=== PATIENT | female | born 1955 | race Caucasian/White ===

== ENCOUNTER 2018-03-17 12:31 | Emergency (ER) | payer OTHER ==
[~2018-03-17] VITALS: Ht 165.1 cm; Wt 83.9 kg
--- OUTSIDE RECORDS SUMMARY | 2018-03-17 12:35 | XMS REPORT ---
Author Author Dali Sena [facility] eClinicalWorks Address Unknown Phone Unavailable Care Team Providers Care Financial Dealers Name Role Phone Dali Sena CP Unavailable Allergies No Known Allergies Problems Problem Type Condition Code Onset Dates Condition Status Problem Diverticulosis of intestine without bleeding, unspecified intestinal tract location K57.90 Active Problem Hyperlipidemia, unspecified hyperlipidemia type E78.5 Active Problem Hx of breast cancer Z85.3 Active Problem Recurrent inguinal hernia without obstruction or gangrene, unspecified laterality K40.91 Active Assessment Hyperlipidemia, unspecified hyperlipidemia type E78.5 Active Problem Intractable migraine without status migrainosus, unspecified migraine type G43.919 Active Problem Osteoporosis, unspecified osteoporosis type, unspecified pathological fracture presence M81.0 Active Medications Medication Code System Code Instructions Start Date End Date Status Dosage Vitamin D (Ergocalciferol) [facility] 95148857325 57482 UNIT Orally once per week Active 1 capsule Atorvastatin Calcium [facility] 33270309730 40 mg Orally Once a day August 31, 2017 Active 1 tablet Atorvastatin Calcium [facility] 22256008794 20 MG Orally Once a day Inactive 1 tablet Results No Known Results Summary Purpose eClinicalWorks Submission
--- OUTSIDE RECORDS SUMMARY | 2018-03-17 12:35 | XMS REPORT | Summary of Care ---
Author Author TONNY Ventura, [facility] [place] Unknown Address Unknown Phone Unavailable Care Team Providers Care Bridge Crane Operator Name Role Phone DALE LANCASTER M.D.H Unavailable Unavailable Functional Status Name Dates Details Functional status health issues are not documented Status: Name Dates Details Cognitive status health issues are not documented Status: Problems Name Dates Details Aftercare following surgery (V58.89, Z48.89) Status: Active Burping (787.3, R14.2) Status: Active Medications Name Dates Details Atorvastatin Calcium 20 MG Oral Tablet Active Flonase SUSP * Refills: 0 Active Restasis 0.05 % Ophthalmic Emulsion * Refills: 0 Active Fish Oil CAPS * Refills: 0 Active Probiotic CAPS * Refills: 0 Active Lipitor 10 MG Oral Tablet * Refills: 0 Active Allergies and Adverse Reactions Name Dates Details No Known Drug Allergies (Allergy) Status: Active Past Medical History Name Dates Details History of Dysphagia (787.20, R13.10) Status: Resolved History of heartburn (V12.79, Z87.898) Status: Resolved History of hiatal hernia (V12.79, Z87.19) Status: Resolved History of hypercholesterolemia (V12.29, Z86.39) Status: Resolved History of malignant neoplasm of breast (V10.3, Z85.3) Status: Resolved History of Regurgitation (787.03, R11.10) Status: Resolved History of renal calculi (V13.01, Z87.442) Status: Resolved History of shortness of breath (V13.89, Z87.898) Status: Resolved Procedures Procedure Dates Details History of Breast Surgery Lumpectomy Completed History of Renal Lithotripsy Completed History of Neuroplasty Decompression Median Nerve At Carpal Tunnel Completed History of Foot Surgery Completed History of Esophagogastric Fundoplasty Laparoscopic Completed Immunization Name Dates Details Immunizations not documented Family History Name Dates Details Family history of Status: Active Family history of ESRD (end stage renal disease) (585.6, N18.6) Status: Active Name Dates Details Family history of cardiac disorder (V17.49, Z82.49) Status: Active Family history of Status: Active Social History Name Dates Details - Status: Name Dates Details Never smoker Vital Signs Date Test Result Details [id number] BP Systolic 113 mm[Hg] Status: Comments: Location: LUE; Position: Sitting BP Diastolic 77 mm[Hg] Status: Comments: Location: LUE; Position: Sitting Height 65 in Status: Weight 183.125 lb Status: Body Mass Index Calculated 30.47 kg/m2 Status: Body Surface Area Calculated 1.91 m2 Status: Temperature 97.6 f Status: Comments: Method: Oral Heart Rate 74 /min Status: Respiration Rate 20 /min Status: Comments: Quality: Normal O2 SAT 97 % Status: Comments: Source: RA Results Date Description Value Details Results not documented Plan of Care Name Dates Details Planned Observations Planned Goals not documented Interventions Provided Plan* At this time, Mrs. Wolfe is fairly asymptomatic. I do not believe she will benefit from a reoperative antireflux surgery at this time. The risks of bleeding and perforation were explained to the patient. She will present to the ER if any fever, nausea, vomiting or abdominal pain occurs. * I will follow up with her in 1 year. Instructions Name Dates Details Instructions not documented Encounters Appointment; CYNDEE LANCASTER M.D. Encounter Diagnosis: Problem not documented On: 02-Mar-2016 8:30 Appointment; CYNDEE LANCASTER M.D. Encounter Diagnosis: Problem not documented On: 23-Mar-2016 8:30 Appointment; RUSH MON Encounter Diagnosis: Problem not documented On: 13-Apr-2017 16:30 Appointment; R[facility] MON Encounter Diagnosis: Problem not documented On: 14-Apr-2017 16:45 Appointment; DARRELL LIMON Encounter Diagnosis: Problem not documented On: 18-Apr-2017 17:00 Appointment; [facility] Encounter Diagnosis: Problem not documented On: 19-May-2017 13:30 Appointment; [facility] Encounter Diagnosis: Problem not documented On: 12-Jun-2017 9:00 Appointment; CYNDEE LANCASTER M.D. Encounter Diagnosis: Problem not documented On: 21-Jun-2017 9:30
--- OUTSIDE RECORDS SUMMARY | 2018-03-17 12:35 | XMS REPORT ---
Author Author Dali Sena [facility] eClinicalWorks Address Unknown Phone Unavailable Care Team Providers Care Manager Managing Name Role Phone Rafa Encarnacion Dali CP Unavailable Allergies, Adverse Reactions, Alerts Substance Reaction Event Type N.K.D.A. Info Not Available Non Drug Allergy Problems Problem Type Condition Code Onset Dates Condition Status Assessment Hypoglycemia E16.2 Active Problem Diverticulosis of intestine without bleeding, unspecified intestinal tract location K57.90 Active Problem Stress F43.9 Active Problem Hyperlipidemia, unspecified hyperlipidemia type E78.5 Active Problem Hypoglycemia E16.2 Active Problem Recurrent inguinal hernia without obstruction or gangrene, unspecified laterality K40.91 Active Problem Hx of breast cancer Z85.3 Active Problem Intractable migraine without status migrainosus, unspecified migraine type G43.919 Active Problem Osteoporosis, unspecified osteoporosis type, unspecified pathological fracture presence M81.0 Active Medications Medication Code System Code Instructions Start Date End Date Status Dosage Zomig ZMT [facility]NOTE 3] 13087051738 2.5 MG Orally Once a day Active 1 tablet on the tongue and allow to dissolve as needed one time Allergy Relief [facility][NOTE 3] 53662170506 4 MG Orally every 6 hrs Active 1 tablet as needed Prolia [facility][NOTE 3] 95076408900 60 MG/ML Subcutaneous every 6 months Active 1 inj MegaRed [place]-3 Krill Oil [facility][NOTE 3] 55704184519 500 mg Orally Active not defined Vitamin D (Ergocalciferol) [facility][NOTE 3] 55640312815 55686 UNIT Orally once per week Active 1 capsule Meloxicam [facility][NOTE 3] 85556307551 7.5 MG Oral Active TK 1 T PO ONCE D Calcium [facility][NOTE 3] [address]-11 150 MG Orally Active not defined Atorvastatin Calcium ND 19372975366 40 mg Orally Once a day August 31, 2017 Active 1/2 tablet Vital Signs Date/Time: Feb 15, 2018 BMI 30.92 Index Weight 185.8 lbs Height 65 in Cardiac Monitoring Heart Rate 63 /min Blood Pressure Diastolic 64 mm Hg Blood Pressure Systolic 110 mm Hg Results No Known Results Summary Purpose eClinicalWorks Submission
--- OUTSIDE RECORDS SUMMARY | 2018-03-17 12:35 | XMS REPORT ---
Author Author Dali Sena [facility] eClinicalWorks Address Unknown Phone Unavailable Care Team Providers Care Sales Data Analyst Name Role Phone Rafa Encarnacion Dali CP Unavailable Allergies, Adverse Reactions, Alerts Substance Reaction Event Type N.K.D.A. Info Not Available Non Drug Allergy Problems Problem Type Condition Code Onset Dates Condition Status Assessment Diaphoresis R61 Active Assessment Stress F43.9 Active Problem Hyperlipidemia, unspecified hyperlipidemia type E78.5 Active Problem Intractable migraine without status migrainosus, unspecified migraine type G43.919 Active Problem Stress F43.9 Active Problem Hx of breast cancer Z85.3 Active Problem Diverticulosis of intestine without bleeding, unspecified intestinal tract location K57.90 Active Problem Osteoporosis, unspecified osteoporosis type, unspecified pathological fracture presence M81.0 Active Problem Recurrent inguinal hernia without obstruction or gangrene, unspecified laterality K40.91 Active Medications Medication Code System Code Instructions Start Date End Date Status Dosage Prolia [facility] 07898238028 60 MG/ML Subcutaneous every 6 months Active 1 inj Atorvastatin Calcium ND 55074115075 40 mg Orally Once a day August 31, 2017 Active 1/2 tablet Vitamin D (Ergocalciferol) [facility] 12001468735 49738 UNIT Orally once per week Active 1 capsule Zomig ZMT [facility] 40457582755 2.5 MG Orally Once a day Active 1 tablet on the tongue and allow to dissolve as needed one time Calcium [facility] [address]-93 150 MG Orally Active not defined Meloxicam ND 18527194664 7.5 MG Oral Active TK 1 T PO ONCE D MegaRed [place]-3 Krill Oil ND 75130697709 500 mg Orally Active not defined Allergy Relief ND 85152604551 4 MG Orally every 6 hrs Active 1 tablet as needed Vital Signs Date/Time: Nov 08, 2017 BMI 30.45 Index Weight 183 lbs Height 65 in Temperature 97.9 F Cardiac Monitoring Heart Rate 78 /min Blood Pressure Diastolic 74 mm Hg Blood Pressure Systolic 114 mm Hg Results No Known Results Summary Purpose eClinicalWorks Submission
--- OUTSIDE RECORDS SUMMARY | 2018-03-17 12:35 | XMS REPORT ---
Author Author Dali Sena [facility] eClinicalWorks Address Unknown Phone Unavailable Care Team Providers Care Stock Parts Inspector Name Role Phone Dali Sena CP Unavailable Allergies, Adverse Reactions, Alerts Substance Reaction Event Type N.K.D.A. Info Not Available Non Drug Allergy Problems Problem Type Condition Code Onset Dates Condition Status Assessment Osteoporosis, unspecified osteoporosis type, unspecified pathological fracture presence M81.0 Active Assessment Screening for malignant neoplasm of breast Z12.39 Active Assessment Hyperlipidemia, unspecified hyperlipidemia type E78.5 Active Problem Diverticulosis of intestine without bleeding, unspecified intestinal tract location K57.90 Active Problem Hyperlipidemia, unspecified hyperlipidemia type E78.5 Active Problem Hx of breast cancer Z85.3 Active Problem Recurrent inguinal hernia without obstruction or gangrene, unspecified laterality K40.91 Active Assessment Routine general medical examination at a health care facility Z00.00 Active Problem Intractable migraine without status migrainosus, unspecified migraine type G43.919 Active Problem Osteoporosis, unspecified osteoporosis type, unspecified pathological fracture presence M81.0 Active Assessment Intractable migraine without status migrainosus, unspecified migraine type G43.919 Active Assessment Hx of breast cancer Z85.3 Active Assessment Recurrent inguinal hernia without obstruction or gangrene, unspecified laterality K40.91 Active Assessment Diverticulosis of intestine without bleeding, unspecified intestinal tract location K57.90 Active Medications Medication Code System Code Instructions Start Date End Date Status Dosage Prolia [facility] 17061334123 60 MG/ML Subcutaneous every 6 months Active 1 inj Atorvastatin Calcium ND 24188536939 20 MG Orally Once a day Active 1 tablet Zomig ZMT [facility] 04258277101 2.5 MG Orally Once a day Active 1 tablet on the tongue and allow to dissolve as needed one time Calcium [facility] [address]-22 150 MG Orally Active not defined Allergy Relief ND 15583302855 4 MG Orally every 6 hrs Active 1 tablet as needed MegaRed [place]-3 Krill Oil ND 64339679482 500 mg Orally Active not defined Vital Signs Date/Time: August 25, 2017 BMI 30.42 Index Weight 182.8 lbs Height 65 in Cardiac Monitoring Heart Rate 78 /min Blood Pressure Diastolic 80 mm Hg Blood Pressure Systolic 120 mm Hg Results Name Result Date Reference Range Unit Abnormality Flag TSH ----TSH 1.100 20170825 0.450-4.500 uIU/mL CBC With Differential/Platelet ----Basos 0 [id number] Not Estab. % ----MCV 92 20170825 79-97 fL ----Hematocrit 41.2 93451403 34.0-46.6 % ----Eos 3 20170825 Not Estab. % ----MCHC 32.5 77439849 31.5-35.7 g/dL ----Monocytes 7 20170825 Not Estab. % ----MCH 30.0 [id number] 26.6-33.0 pg ----Lymphs 24 [id number] Not Estab. % ----Eos (Absolute) 0.3 [id number] 0.0-0.4 x10E3/uL ----WBC 7.8 02461527 3.4-10.8 x10E3/uL ----Monocytes(Absolute) 0.6 [id number] 0.1-0.9 x10E3/uL ----Lymphs (Absolute) 1.8 [id number] 0.7-3.1 x10E3/uL ----Hemoglobin 13.4 12973617 11.1-15.9 g/dL ----Neutrophils (Absolute) 5.0 [id number] 1.4-7.0 x10E3/uL ----RBC 4.47 57778745 3.77-5.28 x10E6/uL ----Immature Grans (Abs) 0.1 [id number] 0.0-0.1 x10E3/uL ----Immature Granulocytes 1 58433975 Not Estab. % ----Neutrophils 65 20170825 Not Estab. % ----Baso (Absolute) 0.0 [id number] 0.0-0.2 x10E3/uL ----RDW 12.9 [id number] 12.3-15.4 % ----Platelets 321 20170825 150-379 x10E3/uL Hemoglobin A1c ----Hemoglobin A1c 5.4 50306304 4.8-5.6 % Urinalysis, Routine ----Glucose TNP 20170825 ----Ketones TNP 20170825 ----pH TNP 20170825 ----Protein TNP 20170825 ----Specific [place] SUBCON [id number] Lipid Panel ----LDL Cholesterol Calc 159 56819433 0-99 mg/dL H ----VLDL Cholesterol Cristopher 27 81227825 5-40 mg/dL ----HDL Cholesterol 59 60972451 >39 mg/dL ----Triglycerides 136 37500497 0-149 mg/dL ----Cholesterol, Total 245 24067318 100-199 mg/dL H Comp. Metabolic Panel (14) ----Glucose 87 98399781 65-99 mg/dL ----BUN 14 20170825 8-27 mg/dL ----Creatinine 0.59 76268623 0.57-1.00 mg/dL ----Potassium 4.0 76632819 3.5-5.2 mmol/L ----Chloride 100 02407609 96-106 mmol/L ----ALT (SGPT) 28 20170825 0-32 IU/L ----AST (SGOT) 24 20170825 0-40 IU/L ----eGFR If NonAfricn Am 98 [id number] >59 mL/min/1.73 ----Alkaline Phosphatase 74 77037845 39-117 IU/L ----eGFR If Africn Am 113 [id number] >59 mL/min/1.73 ----Bilirubin, Total 1.4 70226638 0.0-1.2 mg/dL H ----BUN/Creatinine Ratio 24 20170825 12-28 ----A/G Ratio 1.7 20170825 1.2-2.2 ----Sodium 140 54656923 134-144 mmol/L ----Carbon Dioxide, Total 24 20170825 20-29 mmol/L ----Calcium 9.8 77590208 8.7-10.3 mg/dL ----Protein, Total 7.1 20170825 6.0-8.5 g/dL ----Albumin 4.5 20170825 3.6-4.8 g/dL ----Globulin, Total 2.6 20170825 1.5-4.5 g/dL Urine Culture, Routine ----Request Problem SUBCON [id number] ----Result 1 No growth 20170825 ----Urine Culture, Routine Final report [id number] Vitamin D, 25-Hydroxy ----Vitamin D, 25-Hydroxy 24.6 20170825 30.0-100.0 ng/mL L Summary Purpose eClinicalWorks Submission
--- OUTSIDE RECORDS SUMMARY | 2018-03-17 12:35 | XMS REPORT | Continuity of Care Document ---
Author Author [facility] Interface Address Unknown Phone Unavailable Problems Problem Status Onset Date Classification Date Reported Comments Source Hypoglycemia Active Diagnosis 03/17/2018 [facility] Diverticulosis of intestine without bleeding, unspecified intestinal tract location Active Problem 03/17/2018 [facility] Stress Active Problem 03/17/2018 [facility] Hyperlipidemia, unspecified hyperlipidemia type Active Problem 03/17/2018 [facility] Recurrent inguinal hernia without obstruction or gangrene, unspecified laterality Active Problem 03/17/2018 [facility] Hx of breast cancer Active Problem 03/17/2018 [facility] Intractable migraine without status migrainosus, unspecified migraine type Active Problem 03/17/2018 [facility] Osteoporosis, unspecified osteoporosis type, unspecified pathological fracture presence Active Problem 03/17/2018 [facility] Routine general medical examination at a health care facility Active Diagnosis 09/06/2017 [facility] Diaphoresis Active Diagnosis 11/17/2017 [facility] Medications Medication Details Route Status Patient Instructions Ordering Provider Order Date Source Atorvastatin Calcium 1/2 tablet Orally Active 40 mg Orally Once a day Rafa Encarnacion 08/31/2017 [facility] Zomig ZMT 1 tablet on the tongue and allow to dissolve as needed one time Orally Active 2.5 MG Orally Once a day Rafa [facility] Allergy Relief 1 tablet as needed Orally Active 4 MG Orally every 6 hrs Rafa [facility] Prolia 1 inj Subcutaneous Active 60 MG/ML Subcutaneous every 6 months Rafa [facility] MegaRed [place]-3 Krill Oil not defined Orally Active 500 mg Orally Rafa [facility] Vitamin D (Ergocalciferol) 1 capsule Orally Active 64521 UNIT Orally once per week Rafa [facility] Meloxicam TK 1 T PO ONCE D Oral Active 7.5 MG Oral Rafa [facility] Calcium not defined Orally Active 150 MG Orally Rafa [facility] Atorvastatin Calcium 1 tablet Orally Active 20 MG Orally Once a day Rafa [facility] Allergies, Adverse Reactions, Alerts Substance Category Reaction Severity Reaction type Status Date Reported Comments Source N.K.D.A. Adverse Reaction Info Not Available Adverse Reaction Active 02/15/2018 [facility] Immunizations Immunization Date Given Site Status Last Updated Comments Source Results Order Name Results Value Reference Range Date Interpretation Comments Source Vital Signs Vital Sign Value Date Comments Source Weight 185.8 02/15/2018 [facility] Height 65 02/15/2018 [facility] Heart Rate 63 02/15/2018 [facility] Diastolic (mm Hg) 64 02/15/2018 [facility] Systolic (mm Hg) 110 02/15/2018 [facility] Weight 183 11/08/2017 [facility] Height 65 11/08/2017 [facility] Temperature Oral (F) 97.9 F 11/08/2017 [facility] Heart Rate 78 11/08/2017 [facility] Diastolic (mm Hg) 74 11/08/2017 [facility] Systolic (mm Hg) 114 11/08/2017 [facility] Weight 182.8 08/25/2017 [facility] Height 65 08/25/2017 [facility] Heart Rate 78 08/25/2017 [facility] Diastolic (mm Hg) 80 08/25/2017 [facility] Systolic (mm Hg) 120 08/25/2017 [facility] Encounters Location Location Details Encounter Type Encounter Number Reason For Visit Attending Provider ADM Date DC Date Status Source Procedures Procedure Code Date Perfomer Comments Source
--- NOTE | 2018-03-17 13:12 | Diagnostic Imaging Report ---
LEFT HAND - 3 Images HISTORY: Fall, pain COMPARISON: None available. FINDINGS: Bones: Diffusely decreased mineralization of the osseous structures limits bone detail. Mildly displaced, mildly comminuted fractures involving the proximal metaphyses of the fourth and fifth metacarpal bones. Mild dorsal displacement and volar angulation. Joints: No definitive intra-articular extension. Soft tissues: Regional soft tissue swelling. IMPRESSION: Acute fractures involving the proximal fourth and fifth metacarpal bones. Signed by: Dr. Rober Rendon D.O., M.M.M. on 03/17/2018 1:08 PM
== END 2018-03-17 13:55 | disposition home or self-care (01) ==
LOC: FSED 12:31
DX: S62.345A Nondisplaced fracture of base of fourth metacarpal bone, left hand, initial encounter for closed fracture (principal); S62.367A Nondisplaced fracture of neck of fifth metacarpal bone, left hand, initial encounter for closed fracture; S00.81XA Abrasion of other part of head, initial encounter; W01.0XXA Fall on same level from slipping, tripping and stumbling without subsequent striking against object, initial encounter; Y92.008 Other place in unspecified non-institutional (private) residence as the place of occurrence of the external cause
CPT/HCPCS: 99283